=== PATIENT | male | born 1980 | race Two or more races ===

== ENCOUNTER 2018-09-07 06:00 | Day surgery (SDC) | payer OTHER ==
[~2018-09-07 06:00] MED LIST: TENORMIN25 MG PO; TOUJEO
[2018-09-07] MEDS ORDERED: PERCOCET 5-3251 EACH PO (13:30)
== END 2018-09-07 16:20 | disposition home or self-care (01) ==
LOC: CIR.AMB 06:00
DX: C73 Malignant neoplasm of thyroid gland (principal)